=== PATIENT | female | born 1990 | race Caucasian/White ===

== ENCOUNTER → 2018-03-03 06:49 | Day surgery (SDC) | payer OTHER ==
--- NOTE | 2018-02-22 14:41 | HP ---
HISTORY AND PHYSICAL: DATE OF ADMISSION/SURGERY: 03/03/18 DATE OF OFFICE VISIT: 02/16/18 SURGEON: Keysha Arizmendi MD * (DICTATED BY PERLITA MEDINA) PROCEDURE: Right knee arthroscopy with partial medial meniscectomy, possible chondroplasty, possible synovectomy. CHIEF COMPLAINT: Right knee pain. HISTORY OF PRESENT ILLNESS: Ms. 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 She has elected to proceed with surgery, which is scheduled for . PAST MEDICAL HISTORY: History of MRSA. PAST SURGICAL HISTORY: ORIF of the right humerus, I and D of the right shoulder x2 with hardware removal, right knee ACL reconstruction x2. CURRENT MEDICATIONS: 1. Meloxicam. 2. Mirena. ALLERGIES: HEPARIN. FAMILY HISTORY: Denies. SOCIAL HISTORY: She is a 27-year-old female. She lives alone. She does not smoke, use drugs or alcohol. REVIEW OF SYSTEMS: A complete 14-point review of systems was reviewed with the patient. It is positive for history of MRSA infection on her face in 2007. She denies history of DVT, PE, hepatitis, HIV, or anesthesia problems. PHYSICAL EXAMINATION GENERAL: She is well developed, well nourished, in no acute distress. VITAL SIGNS: She stands 68 inches tall, weighs 160 pounds. Her blood pressure is 108/70, her heart rate is 72. HEENT: Normocephalic, atraumatic. NECK: Supple. No palpable lymph nodes. PULMONARY: The lungs are clear to auscultation bilaterally. CARDIO: Regular rate and rhythm. Strong S1 and S2. ABDOMEN: Soft, nontender, nondistended. MUSCULOSKELETAL: Right lower extremity: The skin is intact. There are no open wounds or abrasions. There is a moderate joint effusion. She has some tenderness over the medial joint line, positive César. She has a 2+ dorsalis pedis pulse. Intact sensation in her lower extremity. Muscle group strengths are intact at 5/5. NEUROLOGIC: She is alert and oriented x3. ASSESSMENT AND PLAN: Ms. Estes is a 27-year-old female with complaints of right knee pain. She has severe arthritis as well as a meniscus tear and she has elected to proceed with a right knee arthroscopy with partial medial meniscectomy, possible chondroplasty, possible synovectomy. The surgery is scheduled for 03/03/[address] Arizmendi discussed the risks and benefits of the surgery at today's visit and all of her questions were answered. She will follow up with Dr. Arizmendi 2 weeks after the surgery. PERLITA MEDINA [id number]/[facility] #: [id number] [facility] HEALTH PARTNERSJared
[~2018-03-03 06:49] MED LIST: Atracurium* 10 MG/ML 10 ML VIAL ONE; Buffered Lidocaine 0.9% SYRIN* 5 ML/SYR SYRINGE INTRADERM ONE; Bupivacaine 0.5% SDV PF* 30ML VIAL ONE; EPINEPHRINE 1 MG/ML 1 ML VIAL ONE; EPINEPHrine SYR 0.1MG/ML* SYRINGE ONE; Ketorolac INJ* 30 MG/ML 1 ML VIAL ONE; Lidocaine 2% PF * 5 ML VIAL ONE; Midazolam* 1 MG/ML 5 ML VIAL (5 MG) ONE; Naloxone* 0.4 MG/ML 1 ML VIAL IV PRN; Ondansetron INJ* 2 MG/ML VIAL IV PRN; Ondansetron INJ* 2 MG/ML VIAL ONE; Propofol* 10 MG/ML 20 ML BTL IV PUSH ONE; Sodium Citrate/Citric Acid* 15 ML UDC ONE; Sodium Citrate/Citric Acid* 15 ML UDC PO ONE; ceFAZolin 2 GM in NS PREMIX(*) 2 GM/100 ML BAG IVPB ONE; fentaNYL* 50 MCG/ML 2 ML VIAL (100 MCG VIAL) IV PRN; fentaNYL* 50 MCG/ML 2 ML VIAL (100 MCG VIAL) ONE; fentaNYL* 50 MCG/ML 5 ML VIAL (250 MCG VIAL) ONE; methylPREDNISolone ACETATE 80* 80 MG/ML 1 ML VIAL ONE
[2018-03-03 10:52] VITALS: BP 119/85
--- NOTE | 2018-03-05 01:31 | OP ---
OPERATIVE REPORT: DATE OF OPERATION: 03/03/18 DATE OF : 89 SURGEON: Keysha Arizmendi MD ANESTHESIOLOGIST: Dr. Her. ANESTHESIA: General. PRE-OP DIAGNOSIS: Right knee medial meniscus tear. POST-OP DIAGNOSIS: Right knee medial meniscus tear, lateral meniscal tear, advanced arthritis in all 3 compartments. OPERATIVE PROCEDURE: Right knee arthroscopy with partial medial meniscectomy, partial lateral menisc ectomy, and medial compartment chondroplasty. COMPLICATIONS: None. ESTIMATED BLOOD LOSS: Less than 25 cc. SPECIMENS: None. BRIEF HISTORY/INDICATIONS: Ms. Estes is a 27-year-old female with complex history of knee injury o n the right knee. She has had multiple ACL tears and reconstructions. She has developed post-trauma tic arthritis which is quite advanced for her young age. She developed increasing mechanical new sym ptoms over the last few months and requested an MRI to evaluate for meniscal tear. MRI confirmed the medial meniscal tear. Due to the new mechanical symptoms and pain, she wished to undergo right knee arthroscopy. She fully understood that the scope would be for partial meniscectomy, possible chondr oplasty, but would not be able to fix her long-term post-traumatic arthritic pain. Informed consent was obtained from the patient and she wished to proceed. INTRAOPERATIVE FINDINGS: Intraoperatively, the patient was noted to have grade 3 and 4 Outerbridge c artilage changes in all 3 compartments. She had a complex tear in the posterior horn and body of the medial meniscus. She had a radial tear in the anterior portion of the lateral meniscus. DESCRIPTION OF PROCEDURE: Ms. Estes was identified in the preanesthesia unit. Her right lower extr emity was marked as the correct operative side. Informed consent was signed and placed in the chart. The patient was taken to the operating room and placed under general anesthesia. Right lower extre mity was prepped and draped in the usual sterile fashion. Preop time-out was made to correctly ident marylu the patient's side and site. Appropriate perioperative antibiotics were given within 1 hour of i ncision. A standard anterolateral portal incision was made with a 10 blade. This was carried down through the capsule. Trocar was introduced. The light and water sources were turned on. There was immediate v isualization of the suprapatellar pouch. A tour of the knee joint was performed. Suprapatellar pouc h had no obvious abnormality. There were some floating beds of cartilage in the joint fluid. Patello femoral compartment showed extensive osteophyte formation and expose of chondral bone along the media l and lateral patellar facet. Medial gutter had no plica or loose body. Medial compartment showed e xtensive osteophyte formation in grade 3/4 Outerbridge cartilage changes along the medial femoral con dyle. There was a posterior horn and body tear of the meniscus with anterior displacement. ACL was not visualized. There was a stump anteriorly where the prior ACL reconstruction likely was located. The knee was placed in a [id number] position. Lateral compartment showed a radial type tear in the anterior horn of the lateral meniscus. Lateral compartment had grade 3/4 Outerbridge cartilage c hanges involving the tibial plateau and the lateral femoral condyle. There was extensive osteophyte formation. Lateral gutter had no loose body or plica. Under direct visualization, a medial portal incision was made. A probe was introduced and a second t our of the joint was performed. Shaver and radiofrequency ablation wand were used to clear out the s tump anteriorly and this improved visualization. Straight biter and shaver were used to perform part ial medial meniscectomy. This was performed mainly in the red-white zone of the body and posterior h orn of the medial meniscus. A smooth border was obtained. Radiofrequency ablation wand was used to f urther smooth the edge of the meniscus. Further probing of the medial meniscus showed no additional f lipped fragments. Cartilage and flap along the medial femoral condyle was removed with the radiofrequ ency ablation wand. This chondroplasty was performed in a conservative fashion. Next, the knee was placed in the [id number] position. Straight biter and shaver were used to per form partial lateral meniscectomy. A smooth border of the meniscus was obtained. The knee was copiously irrigated with sterile saline. All instruments were removed. The incisions w ere closed using interrupted 3-0 nylon. Intraarticular injection of 80 mg of Depo-Medrol and 6 cc of 0.25% Marcaine was placed in the knee joint. The patient's incisions were covered with Xeroform, 4 x 4s, and Webril. Matthew wrap and cold pack were placed over this. The patient's anesthesia was reversed without difficulty. She was taken to the PACU in stable condit ion. Intended weightbearing will be weightbearing as tolerated. Intended DVT prophylaxis will be as pirin. [id number]/[facility] #: [id number]
== END | disposition home or self-care (01) ==
LOC: OR 06:49
PROVIDERS: ATTEND Orthopaedic Surgery Adult Reconstructive Orthopaedic Surgery
DX: S83.241A Other tear of medial meniscus, current injury, right knee, initial encounter (principal); S83.281A Other tear of lateral meniscus, current injury, right knee, initial encounter; M17.31 Unilateral post-traumatic osteoarthritis, right knee; M25.561 Pain in right knee; X58.XXXA Exposure to other specified factors, initial encounter; Y92.9 Unspecified place or not applicable
CPT/HCPCS: 81025; A9270-GY; J0171; J0690; J1040; J1885; J2250; J2405; J2704; J3010